=== PATIENT | female | born 1945 | race Native Hawaiian/Other Pacific Islander ===

== ENCOUNTER 2017-01-31 06:01 | Day surgery (SDC) | payer MEDICARE ==
[2017-01-20 09:06] VITALS: BMI 23.9
[2017-01-31] MEDS ORDERED: Bupivacaine 0.5% Inj(30mL) ONE (07:35)
[2017-01-31] MEDS ORDERED: Propofol 10 mg/ml Inj (20 ML) ONE (07:40)
[2017-01-31] MEDS ORDERED: Labetalol 5 mg/ml Inj 20ML ONE (09:06)
[2017-01-31] MEDS ORDERED: HYDROmorphone 0.5 mg/0.5 ml ISec IVP PRN (09:43)
[2017-01-31] MEDS ORDERED: Oxycodone/Acetaminophen 5/325 mg Tab PO PRN (09:51)
[2017-01-31 10:45] VITALS: RESP 18; TEMP 97.8
[2017-01-31 11:28] VITALS: PULSE 86; O2SAT 97
--- NOTE | 2017-01-31 13:25 | RAD ---
PROCEDURE: Fluoroscopy up to 1 hour HISTORY: ORIF LT WRIST COMPARISON: TECHNIQUE: Fluoroscopy was provided in the operating room. 17.2 seconds of fluoro time were used. Two images were submitted FINDINGS: There has been internal fixation of a distal radial fracture with a plate and screws. There is anatomic alignment IMPRESSION: As above
[2017-01-31 14:00] VITALS: BP 132/84
--- NOTE | 2017-01-31 17:59 | OP ---
PROCEDURE DATE: 01/31/2017 PREOPERATIVE DIAGNOSIS: Comminuted displaced volar lip fracture of the left non-dominant radius. POSTOPERATIVE DIAGNOSIS: Comminuted displaced volar lip fracture of the left non-dominant radius. PROCEDURE: Open reduction internal fixation after a failed attempt of closed reduction on 01/20/2017. Open reduction internal fixation with a volar locking plate from [employer]. SURGEON: Pedro Guerin DO TYPE OF ANESTHESIA: LMA. DESCRIPTION OF PROCEDURE: In summary, the patient was taken to the OR. Left wrist prepped and draped in sterile fashion. X-rays showed that the fracture was highly comminuted volarly and distal, so we made a volar wrist incision on the radial side. Tourniquet was inflated and the arm was prepped and draped in sterile fashion. Once that was done, we went to palpate the flexor carpi radialis and used that as a landmark to get into the distal radius radial side and we put the incision distally to help relax the tissues at the flexor crease. Once the flexor carpi radialis was identified, we went through the bed down to the fracture and we elevated the flexor pollicis longus in the pronator quadratus. The fracture was identified further with highly comminution and instability of the distal radial fragments that were hold together as best as possible after we dissected the fibrous tissue out because the fracture was approximately 10 days old. Once we were able to hold the fracture reduced with manual compression, we put a plate on to get skirt clipper x-ray, showed that it was in good position. The fracture was reduced with the help of a volar plate and then the first thing we did was put 2 K-wires to hold the plate to the bone and then once that was also in good position, we put distal screws in place after we put in the first non-locking screw in the shaft part of the plate to hold the fracture together with the compression of the non-locking screw. Then, we put a total of six screws distally and three screws proximally. X-rays showed good position of the screws and the plate and the fracture and the hardware. The wound was irrigated with normal saline. Tourniquet was deflated and closed in layers to cover the pronator quadratus over the plate and approximate the fascia and the brachioradialis was released to allow us to suture the brachioradialis to the pronator quadratus and this helped relieve some of the radial deviating forces. Subcutaneous with 2-0 Vicryl, skin with a combination of 3-0 nylon and stainless steel ros. The patient was placed in a volar splint in dorsiflexion and on deviation. The patient tolerated the procedure well and is sent to recovery room in good condition. Pedro Guerin DO
== END 2017-01-31 13:35 | disposition home or self-care (01) ==
LOC: SDS 06:01
PROVIDERS: ATTEND Orthopaedic Surgery
DX: S52.92XA Unspecified fracture of left forearm, initial encounter for closed fracture (principal); E78.5 Hyperlipidemia, unspecified; X58.XXXA Exposure to other specified factors, initial encounter; Y93.9 Activity, unspecified; Y92.9 Unspecified place or not applicable; Y99.9 Unspecified external cause status
CPT/HCPCS: 25608; 76000; J1100; J1170; J1885; J2001; J2405; J2704; J2765; J3010